=== PATIENT | female | born 1995 | race Two or more races ===

== ENCOUNTER 2022-04-13 09:31 | Emergency (ER) | payer OTHER ==
[~2022-04-13] VITALS: Ht 160 cm; Wt 71.7 kg
[2022-04-13 09:44] VITALS: BP 125/85
[2022-04-13] MEDS ORDERED: ASPirin 81 mg TAB PO ONE (10:00)
[2022-04-13 10:30] LABS: Basophils # (auto) 0.2 10 ^3/uL (0-0.2); Basophils % (auto) 1.2 % (0.0-2.0); Eosinophils # (auto) 0.2 10 ^3/uL (0-0.8); Eosinophils % (auto) 1.1 % (0.0-7.0); Hematocrit 34.6 % (36.0-46.0); Hemoglobin 11.6 g/dL (12.2-16.2); Lymphocytes # (auto) 0.8 10 ^3/uL (0.4-5.4); Lymphocytes % (auto) 5.5 % (10.0-50.0); Mean Corpuscular Hemoglobin 27.6 pg (28.0-32.0); Mean Corpuscular Hgb Conc. 33.5 g/dL (32.0-36.0); Mean Corpuscular Volume 82.4 fL (80.0-100.0); Monocytes # (auto) 0.7 10 ^3/uL (0-1.3); Monocytes % (auto) 4.6 % (0.0-12.0); Neutrophils # (auto) 13.1 10 ^3/uL (1.6-8.6); Neutrophils % (auto) 87.6 % (37.0-80.0)
[2022-04-13 11:02] LABS: Calcium 8.8 mg/dL (8.5-10.1); Potassium 3.9 mmol/L (3.5-5.1)
[2022-04-13 11:09] LABS: Albumin 3.7 g/dL (3.4-5.0); BUN/Creatinine Ratio 13.9; Bilirubin, Total 0.4 mg/dL (0.2-1.0); Total Protein 7.7 g/dL (6.4-8.2)
[2022-04-13] MEDS ORDERED: CEPH-509 PO (12:21)
[2022-04-13] MEDS ORDERED: cefTRIAXone W LIDOCAINE 1 GM IM IM ONE (12:30)
[2022-04-13] MEDS ORDERED: cefTRIAXone SOD 1,000 MG VL IM ONE (13:30)
== END 2022-04-13 14:14 | disposition left against medical advice (07) ==
LOC: ER 09:31
DX: R07.89 Other chest pain (principal); N39.0 Urinary tract infection, site not specified; D64.9 Anemia, unspecified; Z53.29 Procedure and treatment not carried out because of patient's decision for other reasons
CPT/HCPCS: 36415; 80053; 81002; 84443; 84484; 85025; 93005; J0696